=== PATIENT | male | born 1955 | race Caucasian/White ===

== ENCOUNTER 2018-03-01 01:38 | Emergency (ER) | payer OTHER ==
[~2018-03-01] VITALS: Ht 188 cm; Wt 125.0 kg
[2018-03-01] MEDS ORDERED: VANCOMYCIN 1 G PREMIX 200 ML IV SCH (02:30)
[2018-03-01] MEDS ORDERED: FUROSEMIDE 100MG/10ML VIAL IVP ONE (02:30)
[2018-03-01 02:49] LABS: BASOPHILS % 0.6 % (0.0-2.0); EOSINOPHILS % 2.4 % (0.0-5.0); HEMATOCRIT. 40.3 % (42.0-52.0); HEMOGLOBIN. 13.6 g/dL (14.0-18.0); LYMPHOCYTES % 10.1 % (20.0-50.0); MEAN CORPUSCULAR HEMOGLOBIN 28.9 pg (28.0-32.0); MEAN CORPUSCULAR VOLUME 85.6 fL (80.0-94.0); MEAN PLATELET VOLUME 9.1 fl (7.4-10.4); MONOCYTES % 11.7 % (2.0-8.0); NEUTROPHILS % 75.2 % (40.0-76.0); PLATELET 170 x1000/uL (130-400); RED BLOOD CELL COUNT 4.71 mill/uL (4.7-6.1)
[2018-03-01 02:51] LABS: CHLORIDE 91 mEq/L (98-107); INR 1.3; PROTHROMBIN TIME 12.8 sec (9.1-11.1)
[2018-03-01] MEDS ORDERED: POTASSIUM CHLORIDE INJ 40 MEQ in DEXT 5% WATER 250 ML IV ONE (03:30)
[2018-03-01] MEDS ORDERED: MAGNESIUM 2 G PREMIX 50 ML IV NR (03:45)
[2018-03-01] MEDS ORDERED: HYDROCODONE/ACETAMINOPHEN 5/325MG TABLET PO PRN (08:00)
[2018-03-01] MEDS ORDERED: ACETAMINOPHEN 325MG TABLET PO PRN (08:00)
[2018-03-01] MEDS ORDERED: ONDANSETRON HCL 4MG/2ML INJ IV PRN (08:00)
[2018-03-01] MEDS ORDERED: ACETAMINOPHEN 650MG/20.3ML UDC GT PRN (08:00)
[2018-03-01] MEDS ORDERED: IPRATROPIUM/ALBUTEROL 0.5-3(2.5)MG/3ML NEB INH PRN (08:00)
[2018-03-01] MEDS ORDERED: ACETAMINOPHEN 650MG SUPP PR PRN (08:00)
[2018-03-01] MEDS ORDERED: POTASSIUM CHLORIDE 20MEQ TABLET SR PO NR (09:45)
[2018-03-01] MEDS ORDERED: MAGNESIUM OXIDE 400MG TABLET PO NR (09:46)
[2018-03-01 11:10] VITALS: BP 113/76
== END 2018-03-01 11:13 | disposition left against medical advice (07) ==
LOC: ER 01:38 → EDBEDREQ 02:25 → EDBEDREQTM 04:11 → EDBEDREQ 04:11 → ENRESERV 07:49 → CANRESERV 07:49 → EDBEDREQSVC 07:56 → CANRESERV 08:07 → ENRESERV 08:07 → ER 11:13 → CANBEDREQ 16:10
DX: I11.0 Hypertensive heart disease with heart failure (principal); I50.9 Heart failure, unspecified; I48.91 Unspecified atrial fibrillation; E11.9 Type 2 diabetes mellitus without complications; E87.6 Hypokalemia; E83.42 Hypomagnesemia; N17.9 Acute kidney failure, unspecified; L03.116 Cellulitis of left lower limb; M19.90 Unspecified osteoarthritis, unspecified site; E46 Unspecified protein-calorie malnutrition; Z68.35 Body mass index [BMI] 35.0-35.9, adult; Z79.01 Long term (current) use of anticoagulants; Z95.0 Presence of cardiac pacemaker; Z95.1 Presence of aortocoronary bypass graft
CPT/HCPCS: 36415; 71045; 80053; 83690; 83735; 83880; 84484; 85025; 85610; 93005; 96365; 96366; 96367; 96375; 99285; J1940; J3370; J3475; J3480; Z7610; J7060

== ENCOUNTER 2018-03-04 16:27 | Inpatient (IN) | payer OTHER ==
[~2018-03-04] VITALS: Ht 182.9 cm; Wt 124.7 kg
[2018-03-04] MEDS ORDERED: MORPHINE SULFATE 4 MG/ML CPJ (NOT FOR IM USE) IV STA (16:58)
[2018-03-04] MEDS ORDERED: ONDANSETRON HCL 4MG/2ML INJ IV STA (16:58)
[2018-03-04] MEDS ORDERED: PIPERACILLIN/TAZOBACTAM 3.375GM/50ML PREMIX IV ONE (17:15)
[2018-03-04] MEDS ORDERED: FUROSEMIDE 40MG/4ML VIAL IVP ONE (17:15)
[2018-03-04] MEDS ORDERED: PIPERACILLIN/TAZ 3.375G PREMIX 50 ML IV ONE (17:15)
[2018-03-04] MEDS ORDERED: VANCOMYCIN 1 G PREMIX 200 ML IV SCH (17:15)
[2018-03-04] MEDS ORDERED: ACETAMINOPHEN 325MG TABLET PO PRN (18:00)
[2018-03-04 18:50] LABS: CLARITY URINE CLEAR (CLEAR); COLOR URINE YELLOW (YELLOW); KETONES URINE NEGATIVE (NEGATIVE); LEUKOCYTE ESTERASE URINE NEGATIVE (NEGATIVE); NITRITE URINE NEGATIVE (NEGATIVE); OCCULT BLOOD URINE NEGATIVE (NEGATIVE); PH URINE 6.5 (4.5-8.0); PROTEIN URINE NEGATIVE (NEGATIVE); SPECIFIC GRAVITY URINE 1.008 (1.005-1.030)
[2018-03-04 20:06] LABS: BASOPHILS % 0.6 % (0.0-2.0); EOSINOPHILS % 1.8 % (0.0-5.0); HEMATOCRIT. 41.8 % (42.0-52.0); HEMOGLOBIN. 14.3 g/dL (14.0-18.0); LYMPHOCYTES % 12.6 % (20.0-50.0); MEAN CORPUSCULAR HEMOGLOBIN 28.9 pg (28.0-32.0); MEAN CORPUSCULAR VOLUME 84.6 fL (80.0-94.0); MEAN PLATELET VOLUME 9.5 fl (7.4-10.4); MONOCYTES % 10.8 % (2.0-8.0); NEUTROPHILS % 74.2 % (40.0-76.0); PLATELET 182 x1000/uL (130-400); RED BLOOD CELL COUNT 4.94 mill/uL (4.7-6.1); RED CELL DISTRIBUTION WIDTH 16.8 % (11.6-14.6)
[2018-03-04 20:11] LABS: CHLORIDE 85 mEq/L (98-107)
[2018-03-04] MEDS ORDERED: POTASSIUM CHLORIDE 20MEQ TABLET SR PO ONE (21:00)
[2018-03-04 22:47] VITALS: BP 129/79
[2018-03-05] MEDS: CLINDAMYCIN 900 MG in DEXTROSE 5% WATER 50 ML IV SCH ×4 (00:29→22:23)
[2018-03-05] MEDS ORDERED: POTASSIUM CHLORIDE 20MEQ TABLET SR PO NR ×2 (00:30→21:00)
[2018-03-05 04:00] VITALS: BP 130/75
[2018-03-05] MEDS ORDERED: ATOR80TA MT (06:26)
[2018-03-05] MEDS ORDERED: IPRA3AMP9 HHN (06:26)
[2018-03-05] MEDS ORDERED: INSU100I13 SQ (06:26)
[2018-03-05] MEDS ORDERED: BISA10SU62 RC (06:26)
[2018-03-05] MEDS ORDERED: GABA300C MT (06:26)
[2018-03-05] MEDS ORDERED: FURO80TA87 MT (06:26)
[2018-03-05] MEDS ORDERED: PROT40 MT (06:26)
[2018-03-05] MEDS ORDERED: DOCU250C14 MT (06:26)
[2018-03-05] MEDS ORDERED: SITA100T11 MT (06:26)
[2018-03-05] MEDS ORDERED: ACET-2178 PO (06:26)
[2018-03-05] MEDS ORDERED: METH5TAB68 MT (06:26)
[2018-03-05] MEDS ORDERED: POTA10TA2 PO (06:26)
[2018-03-05] MEDS ORDERED: INSU100I24 SQ (06:26)
[2018-03-05] MEDS ORDERED: PROC-11 MT (06:26)
[2018-03-05] MEDS ORDERED: HYDR1LIQ MT (06:26)
[2018-03-05] MEDS ORDERED: NAPR-1176 PO (06:26)
[2018-03-05] MEDS ORDERED: LORA-249 PO (06:29)
[2018-03-05 08:00] VITALS: BP 129/76
[2018-03-05 12:00] VITALS: BP 114/75
[2018-03-05] MEDS ORDERED: ONDANSETRON HCL 4MG/2ML INJ IV PRN (12:15)
[2018-03-05] MEDS ORDERED: DEXTROSE 50% WATER 50ML SYRINGE IV PRN (12:15)
[2018-03-05] MEDS ORDERED: LORAZEPAM 0.5MG TABLET PO PRN (12:15)
[2018-03-05] MEDS ORDERED: NAPROXEN 250MG TABLET PO PRN (13:00)
[2018-03-05] MEDS: BLOOD SUGAR DIAGNOSTIC STRIP TEST SCH ×3 (13:10→21:31)
[2018-03-05] MEDS ORDERED: INSULIN LISPRO 100 UNITS/ML SUBCUT SCH (13:10)
[2018-03-05] MEDS: FUROSEMIDE 100MG/10ML VIAL IVP SCH ×2 (13:29→16:16)
[2018-03-05] MEDS: GABAPENTIN 300MG CAPSULE PO SCH ×2 (13:38→21:45)
[2018-03-05 15:52] LABS: BASOPHILS % 0.5 % (0.0-2.0); EOSINOPHILS % 2.7 % (0.0-5.0); HEMATOCRIT. 41.2 % (42.0-52.0); HEMOGLOBIN. 13.9 g/dL (14.0-18.0); LYMPHOCYTES % 10.7 % (20.0-50.0); MEAN CORPUSCULAR HEMOGLOBIN 28.9 pg (28.0-32.0); MEAN CORPUSCULAR VOLUME 85.6 fL (80.0-94.0); MEAN PLATELET VOLUME 9.3 fl (7.4-10.4); MONOCYTES % 11.9 % (2.0-8.0); NEUTROPHILS % 74.2 % (40.0-76.0); PLATELET 171 x1000/uL (130-400); RED BLOOD CELL COUNT 4.81 mill/uL (4.7-6.1); RED CELL DISTRIBUTION WIDTH 16.6 % (11.6-14.6)
[2018-03-05 16:00] VITALS: BP 116/73
[2018-03-05] MEDS ORDERED: IPRATROPIUM/ALBUTEROL 0.5-3(2.5)MG/3ML NEB HHN PRN (16:45)
[2018-03-05] MEDS: INSULIN LISPRO 100 UNITS/ML SUBCUT SCH ×2 (18:10→21:49)
[2018-03-05] MEDS ORDERED: POTASSIUM CHLORIDE INJ 40 MEQ in DEXT 5% WATER 250 ML IV NR (18:30)
[2018-03-05] MEDS: POTASSIUM CHLORIDE 20MEQ TABLET SR PO SCH (18:56)
[2018-03-05] MEDS: MORPHINE SULFATE 4 MG/ML CPJ (NOT FOR IM USE) IV PRN (19:47)
[2018-03-05 20:00] VITALS: BP 133/83
[2018-03-05] MEDS ORDERED: FUROSEMIDE 40MG TABLET PO SCH (21:00)
[2018-03-05] MEDS: ENOXAPARIN 30MG/0.3ML SYR SUBCUT SCH (21:00)
[2018-03-05] MEDS: ATORVASTATIN CALCIUM 40MG TABLET PO SCH (21:45)
[2018-03-05] MEDS ORDERED: INSULIN GLARGINE UD 100 UNITS/ML SYR SUBCUT SCH (23:00)
[2018-03-06] VITALS: BP 125/88
[2018-03-06] MEDS ORDERED: POTASSIUM CHLORIDE 20MEQ TABLET SR PO SCH (03:00)
[2018-03-06 04:00] VITALS: BP 118/57
[2018-03-06] MEDS: GABAPENTIN 300MG CAPSULE PO SCH ×3 (05:16→21:10)
[2018-03-06] MEDS: CLINDAMYCIN 900 MG in DEXTROSE 5% WATER 50 ML IV SCH ×2 (05:16→16:59)
[2018-03-06] MEDS: MORPHINE SULFATE 4 MG/ML CPJ (NOT FOR IM USE) IV PRN ×2 (05:25→19:43)
[2018-03-06 08:00] VITALS: BP 124/72
[2018-03-06] MEDS: INSULIN GLARGINE UD 100 UNITS/ML SYR SUBCUT SCH (08:16)
[2018-03-06] MEDS: INSULIN LISPRO 100 UNITS/ML SUBCUT SCH ×4 (08:16→21:11)
[2018-03-06] MEDS: ENOXAPARIN 30MG/0.3ML SYR SUBCUT SCH ×2 (08:18→21:00)
[2018-03-06] MEDS: POTASSIUM CHLORIDE 20MEQ TABLET SR PO SCH (08:18)
[2018-03-06] MEDS: PANTOPRAZOLE 40MG DR TABLET PO SCH (08:18)
[2018-03-06] MEDS: BLOOD SUGAR DIAGNOSTIC STRIP TEST SCH ×4 (08:18→21:10)
[2018-03-06] MEDS: FUROSEMIDE 100MG/10ML VIAL IVP SCH ×2 (08:18→16:59)
[2018-03-06 12:00] VITALS: BP 132/77
[2018-03-06 16:00] VITALS: BP 128/75
[2018-03-06] MEDS: ATORVASTATIN CALCIUM 40MG TABLET PO SCH (21:10)
[2018-03-07] VITALS: BP 121/74
[2018-03-07] MEDS: CLINDAMYCIN 900 MG in DEXTROSE 5% WATER 50 ML IV SCH ×3 (01:58→18:00)
[2018-03-07 04:00] VITALS: BP 108/62
[2018-03-07] MEDS: GABAPENTIN 300MG CAPSULE PO SCH ×3 (05:24→22:03)
[2018-03-07] MEDS: BLOOD SUGAR DIAGNOSTIC STRIP TEST SCH ×4 (07:26→21:00)
[2018-03-07 08:00] VITALS: BP 114/72
[2018-03-07] MEDS: PANTOPRAZOLE 40MG DR TABLET PO SCH (08:04)
[2018-03-07] MEDS: INSULIN LISPRO 100 UNITS/ML SUBCUT SCH ×5 (08:05→23:26)
[2018-03-07] MEDS: ENOXAPARIN 30MG/0.3ML SYR SUBCUT SCH ×4 (09:00→22:05)
[2018-03-07] MEDS ORDERED: POTASSIUM CHLORIDE 20MEQ TABLET SR PO SCH (09:00)
[2018-03-07] MEDS: POTASSIUM CHLORIDE 20MEQ TABLET SR PO SCH (09:09)
[2018-03-07] MEDS: FUROSEMIDE 100MG/10ML VIAL IVP SCH ×2 (09:09→18:01)
[2018-03-07] MEDS: INSULIN GLARGINE UD 100 UNITS/ML SYR SUBCUT SCH (10:42)
[2018-03-07 12:00] VITALS: BP 111/70
[2018-03-07 16:00] VITALS: BP 118/68
[2018-03-07] MEDS: SPIRONOLACTONE 25MG TABLET PO SCH (18:00)
[2018-03-07] MEDS: ATORVASTATIN CALCIUM 40MG TABLET PO SCH (22:03)
[2018-03-08] VITALS: BP 121/74
[2018-03-08] MEDS: CLINDAMYCIN 900 MG in DEXTROSE 5% WATER 50 ML IV SCH ×2 (02:00→08:55)
[2018-03-08 04:00] VITALS: BP 125/64
[2018-03-08] MEDS: GABAPENTIN 300MG CAPSULE PO SCH ×2 (06:08→14:00)
[2018-03-08] MEDS: PANTOPRAZOLE 40MG DR TABLET PO SCH (06:08)
[2018-03-08] MEDS: BLOOD SUGAR DIAGNOSTIC STRIP TEST SCH ×2 (06:15→11:53)
[2018-03-08] MEDS: INSULIN LISPRO 100 UNITS/ML SUBCUT SCH ×4 (07:40→11:54)
[2018-03-08 08:00] VITALS: BP 137/79
[2018-03-08] MEDS: FUROSEMIDE 100MG/10ML VIAL IVP SCH (08:40)
[2018-03-08] MEDS: POTASSIUM CHLORIDE 20MEQ TABLET SR PO SCH (08:41)
[2018-03-08] MEDS: SPIRONOLACTONE 25MG TABLET PO SCH (08:41)
[2018-03-08] MEDS: ENOXAPARIN 30MG/0.3ML SYR SUBCUT SCH (08:55)
[2018-03-08] MEDS: INSULIN GLARGINE UD 100 UNITS/ML SYR SUBCUT SCH (10:00)
[2018-03-08 12:00] VITALS: BP 131/80
[2018-03-08 15:43] VITALS: BP 130/80
[2018-03-09 13:11] LABS: *CREATININE RANDOM URINE 26.3 mg/dL (Not Estab.); MICROALBUMIN RANDOM URINE 61.2 ug/mL (Not Estab.)
== END 2018-03-08 17:10 | DRG 383 ==
LOC: ER 16:27 → 7WST 18:01 → EDBEDREQTM 18:02 → EDBEDREQ 18:02 → ENRESERV 20:20
PROVIDERS: ADMIT Internal Medicine; ATTEND Internal Medicine
DX: L03.116 Cellulitis of left lower limb (principal); J96.20 Acute and chronic respiratory failure, unspecified whether with hypoxia or hypercapnia; I50.43 Acute on chronic combined systolic (congestive) and diastolic (congestive) heart failure; N17.9 Acute kidney failure, unspecified; E11.22 Type 2 diabetes mellitus with diabetic chronic kidney disease; E66.01 Morbid (severe) obesity due to excess calories; E11.42 Type 2 diabetes mellitus with diabetic polyneuropathy; I42.0 Dilated cardiomyopathy; R18.8 Other ascites; L03.115 Cellulitis of right lower limb; E83.42 Hypomagnesemia; I13.0 Hypertensive heart and chronic kidney disease with heart failure and stage 1 through stage 4 chronic kidney disease, or unspecified chronic kidney disease; E11.621 Type 2 diabetes mellitus with foot ulcer; I48.91 Unspecified atrial fibrillation; N18.9 Chronic kidney disease, unspecified; E87.6 Hypokalemia; E87.8 Other disorders of electrolyte and fluid balance, not elsewhere classified; Z66 Do not resuscitate; F41.9 Anxiety disorder, unspecified; T50.2X5A Adverse effect of carbonic-anhydrase inhibitors, benzothiadiazides and other diuretics, initial encounter; J44.9 Chronic obstructive pulmonary disease, unspecified; I34.0 Nonrheumatic mitral (valve) insufficiency; H40.9 Unspecified glaucoma; E87.5 Hyperkalemia; I25.10 Atherosclerotic heart disease of native coronary artery without angina pectoris; M19.90 Unspecified osteoarthritis, unspecified site; Z51.5 Encounter for palliative care; Z95.810 Presence of automatic (implantable) cardiac defibrillator; Z99.81 Dependence on supplemental oxygen; Z95.1 Presence of aortocoronary bypass graft; Z89.421 Acquired absence of other right toe(s); Z79.4 Long term (current) use of insulin; Z95.2 Presence of prosthetic heart valve; Y92.89 Other specified places as the place of occurrence of the external cause; Z68.37 Body mass index [BMI] 37.0-37.9, adult
CPT/HCPCS: 36415; 71045; 76705; 80048; 80061; 82043; 82570; 82962; 83605; 83735; 83880; 84156; 84300; 84443; 84484; 93005; 93306; 93970; 96365; 96375; 99285; J1650; J1815; J1940; J2270; J2405; J2543; J3480; J3490; J7050; J7060

== ENCOUNTER 2018-04-24 02:35 | Inpatient (IN) | payer OTHER ==
[~2018-04-24] VITALS: Ht 182.9 cm; Wt 123.4 kg
[~2018-04-24 02:35] MED LIST: ACET-2178 PO; ATOR80TA MT; BISA10SU62 RC; DOCU250C14 MT; FURO80TA87 MT; GABA300C MT; HYDR1LIQ MT; INSU100I13 SQ; INSU100I24 SQ; IPRA3AMP9 HHN; LORA-249 PO; METH5TAB68 MT; NAPR-1176 PO; POTA10TA2 PO; PROC-11 MT; PROT40 MT; SITA100T11 MT
[2018-04-24] MEDS ORDERED: FUROSEMIDE 40MG/4ML VIAL IV ONE (03:15)
[2018-04-24 03:33] LABS: BASOPHILS % 0.8 % (0.0-2.0); EOSINOPHILS % 1.6 % (0.0-5.0); HEMATOCRIT. 42.7 % (42.0-52.0); HEMOGLOBIN. 14.1 g/dL (14.0-18.0); LYMPHOCYTES % 10.1 % (20.0-50.0); MEAN CORPUSCULAR VOLUME 87.6 fL (80.0-94.0); MEAN PLATELET VOLUME 9.7 fl (7.4-10.4); MONOCYTES % 10.5 % (2.0-8.0); PLATELET 181 x1000/uL (130-400); RED BLOOD CELL COUNT 4.87 mill/uL (4.7-6.1); RED CELL DISTRIBUTION WIDTH 17.3 % (11.6-14.6)
[2018-04-24 03:35] LABS: CHLORIDE 104 mEq/L (98-107)
[2018-04-24 03:39] LABS: ETHANOL BLOOD < 10 mg/dL
[2018-04-24 03:49] LABS: INR 1.4; PARTIAL THROMBOPLASTIN TIME 29.3 sec (23.4-31.0); PROTHROMBIN TIME 13.7 sec (9.1-11.1)
[2018-04-24 05:18] LABS: *AMPHETAMINES SCREEN URINE NEGATIVE (NEGATIVE); *BARBITURATES SCREEN URINE NEGATIVE (NEGATIVE); *BENZODIAZEPINES SCREEN URINE NEGATIVE (NEGATIVE); *COCAINE SCREEN URINE NEGATIVE (NEGATIVE)
[2018-04-24 05:20] LABS: CANNABINOID URINE SCREEN NEGATIVE (NEGATIVE); METHADONE URINE SCREEN NEGATIVE (NEGATIVE); OPIATES URINE SCREEN NEGATIVE (NEGATIVE); PHENCYCLIDINE URINE SCREEN NEGATIVE (NEGATIVE)
[2018-04-24] MEDS ORDERED: IPRATROPIUM/ALBUTEROL 0.5-3(2.5)MG/3ML NEB INH PRN (09:15)
[2018-04-24] MEDS ORDERED: CLONIDINE 0.1MG TABLET PO PRN (09:15)
[2018-04-24] MEDS ORDERED: ONDANSETRON HCL 4MG/2ML INJ IV PRN (09:15)
[2018-04-24] MEDS ORDERED: HYDROCODONE/ACETAMINOPHEN 5/325MG TABLET PO PRN (09:15)
[2018-04-24] MEDS ORDERED: ACETAMINOPHEN 325MG TABLET PO PRN (09:15)
[2018-04-24] MEDS ORDERED: DOCUSATE SODIUM 100MG CAPSULE PO PRN (09:15)
[2018-04-24 11:30] VITALS: BP 120/88
[2018-04-24] MEDS ORDERED: DEXTROSE 50% WATER 50ML SYRINGE IV PRN (11:30)
[2018-04-24 12:00] VITALS: BP 120/88
[2018-04-24] MEDS: BLOOD SUGAR DIAGNOSTIC STRIP TEST SCH ×3 (12:40→20:34)
[2018-04-24 12:49] VITALS: BP 120/88
[2018-04-24] MEDS ORDERED: INSULIN GLARGINE UD 100 UNITS/ML SYR SUBCUT SCH (13:00)
[2018-04-24] MEDS: INSULIN LISPRO 100 UNITS/ML SUBCUT SCH ×4 (13:10→21:00)
[2018-04-24] MEDS ORDERED: POTASSIUM CHLORIDE 20MEQ/PACKET PO NR (13:20)
[2018-04-24] MEDS: GABAPENTIN 300MG CAPSULE PO SCH ×2 (13:40→22:22)
[2018-04-24] MEDS: PANTOPRAZOLE 40MG DR TABLET PO SCH (13:40)
[2018-04-24] MEDS: ASPIRIN 325MG EC TABLET PO SCH (13:41)
[2018-04-24] MEDS: METHIMAZOLE 5MG TABLET PO SCH (13:41)
[2018-04-24 16:00] VITALS: BP_SYST 141; BP_SYST 161; BP_DIAS 92
[2018-04-24] MEDS: FUROSEMIDE 40MG/4ML VIAL IVP SCH (18:28)
[2018-04-24] MEDS: POTASSIUM CHLORIDE 20MEQ TABLET SR PO SCH (18:28)
[2018-04-24 20:00] VITALS: BP 137/92
[2018-04-24] MEDS ORDERED: ATORVASTATIN CALCIUM 40MG TABLET PO SCH (21:00)
[2018-04-25] MEDS: INSULIN GLARGINE UD 100 UNITS/ML SYR SUBCUT SCH ×2 (00:15→10:55)
[2018-04-25 00:20] VITALS: BP 133/92
[2018-04-25 04:00] VITALS: BP 116/75
[2018-04-25] MEDS: FUROSEMIDE 40MG/4ML VIAL IVP SCH ×2 (06:51→18:32)
[2018-04-25] MEDS: GABAPENTIN 300MG CAPSULE PO SCH ×2 (06:51→13:56)
[2018-04-25 08:00] VITALS: BP 132/91
[2018-04-25] MEDS: INSULIN LISPRO 100 UNITS/ML SUBCUT SCH ×3 (08:10→18:01)
[2018-04-25] MEDS: BLOOD SUGAR DIAGNOSTIC STRIP TEST SCH ×3 (08:20→18:01)
[2018-04-25] MEDS ORDERED: ASPIRIN 81MG EC TABLET PO SCH (09:00)
[2018-04-25] MEDS: METHIMAZOLE 5MG TABLET PO SCH (09:39)
[2018-04-25] MEDS: POTASSIUM CHLORIDE 20MEQ TABLET SR PO SCH ×2 (09:39→18:32)
[2018-04-25] MEDS: PANTOPRAZOLE 40MG DR TABLET PO SCH (09:39)
[2018-04-25] MEDS: ASPIRIN 325MG EC TABLET PO SCH (09:39)
[2018-04-25] MEDS ORDERED: POTASSIUM CHLORIDE 20MEQ TABLET SR PO NR (11:00)
[2018-04-25 12:00] VITALS: BP 128/81
[2018-04-25 16:00] VITALS: BP 121/94
[2018-04-25 20:00] VITALS: BP 151/97
== END 2018-04-25 21:25 | disposition left against medical advice (07) | DRG 194 ==
LOC: ER 02:35 → EDBEDREQTM 06:25 → EDBEDREQ 06:25 → ENRESERV 09:44 → 7WST 11:04
PROVIDERS: ADMIT Internal Medicine; ATTEND Internal Medicine
DX: I13.0 Hypertensive heart and chronic kidney disease with heart failure and stage 1 through stage 4 chronic kidney disease, or unspecified chronic kidney disease (principal); E11.22 Type 2 diabetes mellitus with diabetic chronic kidney disease; E87.8 Other disorders of electrolyte and fluid balance, not elsewhere classified; E05.90 Thyrotoxicosis, unspecified without thyrotoxic crisis or storm; I50.43 Acute on chronic combined systolic (congestive) and diastolic (congestive) heart failure; Z66 Do not resuscitate; Z95.1 Presence of aortocoronary bypass graft; M19.90 Unspecified osteoarthritis, unspecified site; H40.9 Unspecified glaucoma; E87.6 Hypokalemia; E78.00 Pure hypercholesterolemia, unspecified; I42.0 Dilated cardiomyopathy; K21.9 Gastro-esophageal reflux disease without esophagitis; I25.10 Atherosclerotic heart disease of native coronary artery without angina pectoris; Z79.4 Long term (current) use of insulin; N18.9 Chronic kidney disease, unspecified; L03.119 Cellulitis of unspecified part of limb
CPT/HCPCS: 36415; 71045; 80305; 82962; 83880; 84484; 93005; 96372; 96374; 99285; G0482; J1815; J1940